=== PATIENT | male | born 1985 | race Caucasian/White ===

== ENCOUNTER 2019-08-09 04:06 | Emergency (ER) | payer OTHER ==
[~2019-08-09] VITALS: Ht 180.3 cm; Wt 81.6 kg
[2019-08-09 04:06] VITALS: BP 130/84
--- NOTE | 2019-08-09 04:06 | NUR ---
PT AMBULATED TO [facility].
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
--- NOTE | 2019-08-09 04:37 | NUR ---
PATIENT EXAMINED BY DR. GOVEA. PATIENT MEDICALLY CLEARED AND RELEASED IN CUSTODY IN STABLE CONDITION. ORIGINAL PRE-BOOK FORM GIVEN TO OFFICER KYE.
== END 2019-08-09 04:37 | disposition home or self-care (01) ==
LOC: MED 04:06
DX: Z02.89 Encounter for other administrative examinations (principal); I10 Essential (primary) hypertension; V89.2XXA Person injured in unspecified motor-vehicle accident, traffic, initial encounter; Y93.89 Activity, other specified; Y92.410 Unspecified street and highway as the place of occurrence of the external cause; Y99.8 Other external cause status
CPT/HCPCS: 99283

== ENCOUNTER 2020-06-11 09:07 | Emergency (ER) | payer SELFPAY ==
[~2020-06-11] VITALS: Ht 180.3 cm; Wt 108.9 kg
[2020-06-11 09:15] VITALS: BP 179/124
--- NOTE | 2020-06-11 09:22 | NUR ---
PT TAKEN TO BED 8.
--- NOTE | 2020-06-11 09:35 | NUR ---
34 Y/O MALE C/O SOB/NAUSEA X1 DAY. PT STATES HE WAS AT WORK AND BEGAN GETTING NAUSEOUS, HAD ONE EPISODE OF EMESIS, AND WAS SENT HOME. HE STATES THE SOB BEGAN TODAY AND HE FEELS LIKE HES "NOT GETTING ENOUGH OXYGEN". PT REPORTS THAT HIS BROTHER WAS TESTED + COVID, AND LIVES IN THE SAME HOUSE. DENIES ANY COUGH AND FEVER. RESP EVEN AND UNLABORED. BP: 159/110, PT STATES HE HAS NOT TAKEN HIS BP MEDS IN FOUR DAYS. PT TAKES AMLODIPINE, LOSARTAN AND ONE PILL HE IS UNABLE TO RECALL PMH: HTN NKA
[2020-06-11] MEDS ORDERED: NACL 0.9% 1,000 ML IV ONE (09:55)
[2020-06-11] MEDS ORDERED: hydrALAZINE 20 MG/ML VIAL IVP ONE (10:05)
[2020-06-11 10:12] LABS: BASOPHILS # (AUTO) 0.1 K/uL (0.00-0.22); BASOPHILS % (AUTO) 0.9 % (0.0-2.0); EOSINOPHILS % (AUTO) 0.3 % (0.0-4.0); HEMATOCRIT 43.7 % (36-52); HEMOGLOBIN 14.5 g/dL (12.0-18.0); LYMPHOCYTES # (AUTO) 1.6 K/uL (2.0-11.5); LYMPHOCYTES % (AUTO) 21.5 % (20.5-51.1); MEAN CORPUSCULAR HEMOGLOBIN 29 pg (27-31); MEAN CORPUSCULAR HGB CONC 33 g/dL (33-37); MEAN CORPUSCULAR VOLUME 87.8 fL (80-94); MONOCYTES # (AUTO) 0.6 K/uL (0.8-1.0); MONOCYTES % (AUTO) 8.5 % (1.7-9.3); NEUTROPHILS # (AUTO) 5.2 K/uL (1.8-7.7); NEUTROPHILS % (AUTO) 68.8 % (42.2-75.2); PLATELET COUNT (AUTO) 319 K/uL (140-450); RED BLOOD CELL COUNT(AUTO) 4.98 MIL/uL (4.20-6.10); RED CELL DISTRIBUTION WIDTH 13.5 % (11.6-13.7); WHITE BLOOD COUNT (AUTO) 7.5 K/uL (4.8-10.8)
--- NOTE | 2020-06-11 10:20 | NUR ---
COVID SWAB PERFORMED AT BEDSIDE. HANDED TO BUS GIRL
[2020-06-11 10:53] LABS: ALBUMIN 4.5 g/dL (3.4-5.0); ANION GAP 15.4 (8-16); CARBON DIOXIDE 25.7 mmol/L (21-32); CREATININE 1.1 mg/dL (0.6-1.3); POTASSIUM 4.1 mmol/L (3.5-5.1); TOTAL BILIRUBIN 0.3 mg/dL (0.0-1.0)
[2020-06-11 11:25] VITALS: BP 161/109
--- NOTE | 2020-06-11 11:25 | NUR ---
Patient discharged with v/s stable. Written and verbal after care instructions given and explained. Patient alert, oriented and verbalized understanding of instructions. Ambulatory with steady gait. All questions addressed prior to discharge. ID band removed. Patient advised to follow up with PMD. Rx of ZOFRAN, NAPROXEN given. Patient educated on indication of medication including possible reaction and side effects. Opportunity to ask questions provided and answered.
== END 2020-06-11 11:25 | disposition home or self-care (01) ==
LOC: MED 09:07
DX: R06.02 Shortness of breath (principal); R11.2 Nausea with vomiting, unspecified; R06.00 Dyspnea, unspecified; I10 Essential (primary) hypertension; F12.10 Cannabis abuse, uncomplicated; Z20.828 Contact with and (suspected) exposure to other viral communicable diseases
CPT/HCPCS: 71045; 80053; 85025; 96360; 96372; 99284; J0360; Q0092; U0003; 96361; J7030

== ENCOUNTER 2023-08-06 00:45 | Emergency (ER) | payer SELFPAY ==
[~2023-08-06] VITALS: Ht 177.8 cm; Wt 132.4 kg
[2023-08-06 01:02] VITALS: BP 171/116; PULSE 98; RESP 14; TEMP 97.5; O2SAT 98
[2023-08-06] MEDS ORDERED: CIPR500T4 PO (01:49)
[2023-08-06] MEDS ORDERED: CIPR7.5S OT (01:49)
[2023-08-06 01:55] VITALS: BP 171/116; PULSE 98; RESP 14; TEMP 97.5; O2SAT 98
== END 2023-08-06 01:55 | disposition home or self-care (01) ==
LOC: MED 00:45
DX: H66.003 Acute suppurative otitis media without spontaneous rupture of ear drum, bilateral (principal); H60.93 Unspecified otitis externa, bilateral; I10 Essential (primary) hypertension; Z79.899 Other long term (current) drug therapy
CPT/HCPCS: 99283